=== PATIENT | male | born 1975 | race Caucasian/White ===

== ENCOUNTER → 2024-02-21 | Outpatient (CLI) | payer OTHER ==
--- NOTE | 2024-02-21 09:47 | XR ---
EXAMINATION TYPE: XR chest 2V DATE OF EXAM: 02/21/2024 9:08 AM COMPARISON: None CLINICAL INDICATION: Male, 48 years old with history of [id number] COUGH,WHEEZE; [facility] TECHNIQUE: XR chest 2V Frontal and lateral views of the chest. FINDINGS: Lungs/Pleura: There is no evidence of pleural effusion, focal consolidation, or pneumothorax. Pulmonary vascularity: Unremarkable. Heart/mediastinum: Cardiomediastinal silhouette is unremarkable. Musculoskeletal: No acute osseous pathology. IMPRESSION: 1. No acute cardiopulmonary disease process. 2. COPD changes. [facility], , 02/21/2024 9:44 AM
== END | disposition home or self-care (01) ==
LOC: RADXRYALE 08:56
PROVIDERS: ATTEND Physician Assistant
DX: J44.9 Chronic obstructive pulmonary disease, unspecified (principal); R05.1 Acute cough; R06.2 Wheezing
CPT/HCPCS: 71046